=== PATIENT | female | born 1960 | race Caucasian/White ===

== ENCOUNTER → 2018-02-25 | Outpatient (CLI) | payer OTHER ==
--- NOTE | 2018-02-25 11:35 | XR ---
EXAMINATION TYPE: XR ribs LT w pa chest xray DATE OF EXAM: 02/25/2018 CLINICAL HISTORY: Chest and left lower rib pain. TECHNIQUE: Single frontal view of the chest is obtained. A frontal and oblique images left-sided ribs are acquired. COMPARISON: Prior chest and left-sided rib x-rays September 26, 2013. FINDINGS: There is no new focal air space opacity, pleural effusion, or pneumothorax seen. There is persistent linear scarring in the left lateral lung base. The cardiac silhouette size is mildly enlar ged. The osseous structures are intact. Dedicated images left-sided ribs show no acute displaced fracture. No suspicious expansile lesion is seen. Overlying soft tissue is unremarkable. IMPRESSION: 1. Stable left basilar lateral linear scarring. No acute pulmonary process. 2. No acute displaced left-sided rib fractures are seen.
== END | disposition home or self-care (01) ==
LOC: RADXRYALE 10:54
PROVIDERS: ATTEND Physician Assistant Medical
DX: J98.4 Other disorders of lung (principal)

== ENCOUNTER → 2020-10-27 | Outpatient (CLI) | payer BC ==
--- NOTE | 2020-10-27 11:36 | XR ---
EXAMINATION TYPE: XR chest 2V DATE OF EXAM: 10/27/2020 COMPARISON: Chest x-ray February 25, 2013 HISTORY: Dyspnea. TECHNIQUE: Frontal and lateral views of the chest are obtained. FINDINGS: There is chronic opacity left lung base without suspicious new focal air space opacity, pl eural effusion, or pneumothorax seen. The cardiac silhouette size is stable and upper limits of norm al. The osseous structures are intact. IMPRESSION: Chronic left basilar scarring. No new acute process.
== END | disposition home or self-care (01) ==
LOC: RADXRYALE 10:40
PROVIDERS: ATTEND Physician Assistant Medical
DX: J98.4 Other disorders of lung (principal)
CPT/HCPCS: 71046